=== PATIENT | male | born 1990 | race African-American/Black ===

== ENCOUNTER 2023-11-19 10:21 | Emergency (ER) | payer OTHER, MEDICAID, SELFPAY ==
[2023-11-19 10:41] VITALS: BP 118/64; PULSE 77; RESP 16; TEMP 36.6; O2SAT 98
--- NOTE | 2023-11-19 12:26 | PC.NURSE ---
pt LWBS, Ambulated out of ED.
== END 2023-11-19 12:40 | disposition left against medical advice (07) ==
LOC: ANHED 12:39
DX: R11.2 Nausea with vomiting, unspecified (principal)
CPT/HCPCS: 99199

== ENCOUNTER 2024-09-06 19:47 | Emergency (ER) | payer OTHER, MEDICAID, SELFPAY ==
[2024-09-06 19:58] VITALS: BP 123/66; PULSE 66; RESP 14; TEMP 36.7; O2SAT 100
--- NOTE | 2024-09-06 20:12 | ECG_ITS ---
Test Date: 2024-09-06 20:45:38 Measurements Intervals Edgar Rate: 67 P: 24 WA: 160 QRS: 44 QRSD: 94 T: 66 QT: 372 QTc: 394 Interpretive Statements SINUS RHYTHM INCOMPLETE RIGHT BUNDLE BRANCH BLOCK BASELINE ARTIFACT- I, II, III, AVR, AVL, AVF BORDERLINE ECG No previous ECG available for comparison Electronically Signed On 09-07-2024 06:06:11 [employer] by Rivera Sácnhez D.O.
--- NOTE | 2024-09-06 20:23 | PC.NURSE ---
patient denying all SI/HI at this time. Pt states that tonight was all a miscommunication on his ex girlfriends part. States she was saying that because of the current situation he is in, he would not specify what that situation was, that he was telling her that she was likely to take medications and she was concerned about firearms in the house so he told her to take them out. He states that he never had any intention of harming himself, he did not take any pills, and that the broadcast engineer searched him and he did not have any firearms on him or his vehicle. Denies history of any of this behavior and any attempts at harming himself in the past. Endorses taking his medications (venlafaxine and the other he could not remember) daily as prescribed. Given food per request, labs sent down to main lab, and pt given call light.
[2024-09-06 20:25] LABS: Basophils Percent Auto 0.6 % (0.2-1.2); Eosinophils Absolute Auto 0.1 K/mm3 (0-0.3); Hematocrit 44.6 % (42.0-52.0); Hemoglobin 14.8 g/dL (14.0-18.0); Immature Granulocyte Absolute 0.01 K/mm3 (0.00-0.031); Immature Granulocyte Percent A 0.1 % (0-0.5); Lymphocytes Absolute Auto 1.04 K/mm3 (0.9-3.2); Lymphocytes Percent Auto 15.5 % (18.3-44.2); Mean Corpuscular HGB Conc 33.2 g/dl (32-36); Mean Corpuscular Hemoglobin 30.8 pg (26-34); Mean Corpuscular Volume 92.9 fl (80-100); Mean Platelet Volume 10.5 fl (7.4-10.4); Monocytes Absolute Auto 0.5 K/mm3 (0.1-0.6); Monocytes Percent Auto 7.4 % (2.6-8.5); Neutrophils Absolute Auto 5.1 K/mm3 (1.3-6.7); Neutrophils Percent Auto 75.4 % (45.5-73.1); Platelet Count Result 233 k/mm3 (150-375); Red Cell Distribution Width 12.7 % (11.5-14.5); White Blood Count 6.7 K/mm3 (4.5-10.0)
[2024-09-06 20:37] LABS: Alanine Aminotransferase 35 U/L (6-50); Albumin Level 4.6 g/dL (3.5-5.1); Alkaline Phosphatase 48 U/L (38-126); Anion Gap 9 mmol/L (4-12); Aspartate Amino Transferase 27 U/L (17-59); Bilirubin,Total 2.1 mg/dL (0.2-1.3); Blood Urea Nitrogen 11 mg/dL (9-20); Calcium 9.6 mg/dL (8.4-10.2); Carbon Dioxide 28 mmol/L (22-30); Chloride 101 mmol/L (98-107); Estimated CRCL calculation 124 ml/min; Estimated Glomerular Filt Rate > 60; Glucose 99 mg/dL (65-110); Potassium 3.9 mmol/L (3.4-5.0); Sodium 138 mmol/L (137-145)
[2024-09-06 20:51] LABS: Acetaminophen < 10 ug/mL (10-30); Ethanol < 10 mg/dL (<10); Salicylate < 1.0 mg/dL (2-20)
--- NOTE | 2024-09-06 21:11 | ED.GENADULT ---
HPI - General Adult General Chief complaint: Psychiatric Symptoms Stated complaint: Crisis intervention team Time Seen by Provider: 09/06/24 19:58 History of Present Illness HPI narrative: Patient is a 34-year-old gentleman who presents emergency department with chief complaint of needs to be crisis intervened. The patient was called by the girlfriend who reported that the patient stated that he was going to harm himself the patient states that he has no thoughts of harming himself and states it was all a matter of misunderstanding. The patient states that he has no thoughts of harming himself he just wants to watch the game and he had some. Related Data Allergies Allergy/AdvReac Type Severity Reaction Status Date / Time No Known Allergies Allergy Verified 09/06/24 20:28 Review of Systems Review of Systems: A 10 system review of systems was completed on the patient and is negative except for what is stated in the HPI. Nursing and ancillary documentation was reviewed. Exam Narrative: GENERAL: Well-appearing, well-nourished, and in no acute distress. HEAD: Normocephalic, atraumatic. EYES: PERRLA and EOMI. ENT: Nares clear, no rhinorrhea or epistaxis. Mucous membranes moist. NECK: Supple. CHEST: Clear to auscultation. No respiratory distress. HEART: Regular rate and rhythm. No murmur heard. Normal peripheral pulses. ABDOMEN: Soft, nontender, nondistended, normal active bowel sounds. EXTREMITIES: Normal range of motion. No edema. SKIN: Warm, dry, no rash. NEURO: No focal deficits. Alert and oriented x3. PSYCH: Normal mood and affect. Course Vital Signs Vital signs: Vital Signs Temperature 36.7 C 09/06/24 19:58 Pulse Rate 66 09/06/24 19:58 Respiratory Rate 14 09/06/24 19:58 Blood Pressure 123/66 09/06/24 19:58 Pulse Oximetry 100 09/06/24 19:58 Temperature 36.7 C 09/06/24 19:58 Pulse Rate 66 09/06/24 19:58 Respiratory Rate 14 09/06/24 19:58 Blood Pressure 123/66 09/06/24 19:58 Pulse Oximetry 100 09/06/24 19:58 Medical Decision Making MDM Narrative Medical decision making narrative: Differential diagnosis includes is a health crisis, intoxication laboratory studies were obtained on the patient patient showed no acute abnormalities the patient is medically clear for psychiatric evaluation referral transfer and admission patient was seen by crisis and cleared for outpatient follow-up Vital Signs Vital Signs: Vital Signs Temperature 36.7 C 09/06/24 19:58 Pulse Rate 66 09/06/24 19:58 Respiratory Rate 14 09/06/24 19:58 Blood Pressure 123/66 09/06/24 19:58 Pulse Oximetry 100 09/06/24 19:58 Temperature 36.7 C 09/06/24 19:58 Pulse Rate 66 09/06/24 19:58 Respiratory Rate 14 09/06/24 19:58 Blood Pressure 123/66 09/06/24 19:58 Pulse Oximetry 100 09/06/24 19:58 Lab Data 09/06/24 20:19 09/06/24 20:19 Labs: Lab Results 09/06/24 09/06/24 09/06/24 Range/Units 20:13 20:19 20:54 WBC 6.7 (4.5-10.0) K/mm3 RBC 4.80 (4.6-6.20) M/mm3 Hgb 14.8 (14.0-18.0) g/dL Hct 44.6 (42.0-52.0) % MCV 92.9 (80-100) fl MCH 30.8 (26-34) pg MCHC 33.2 (32-36) g/dl RDW 12.7 (11.5-14.5) % Plt Count 233 (150-375) k/mm3 MPV 10.5 H (7.4-10.4) fl Immature Gran % (Auto) 0.1 (0-0.5) % Neut % (Auto) 75.4 H (45.5-73.1) % Lymph % (Auto) 15.5 L (18.3-44.2) % Cassia % (Auto) 7.4 (2.6-8.5) % Eos % (Auto) 1.0 (0-4.4) % Baso % (Auto) 0.6 (0.2-1.2) % Lymph # (Auto) 1.04 (0.9-3.2) K/mm3 Cassia # (Auto) 0.5 (0.1-0.6) K/mm3 Eos # (Auto) 0.1 (0-0.3) K/mm3 Baso # (Auto) 0.0 (0.0-0.1) K/mm3 Abs Immat Gran (auto) 0.01 (0.00-0.031) K/mm3 Absolute Neuts (auto) 5.1 (1.3-6.7) K/mm3 Absolute Nucleated RBC 0.000 (0.0-0.012) K/mm3 Nucleated RBC % 0.0 (0.0-0.2) % Sodium 138 (137-145) mmol/L Potassium 3.9 (3.4-5.0) mmol/L Chloride 101 (98-107) mmol/L Carbon Dioxide 28 (22-30) mmol/L Anion Gap 9 (4-12) mmol/L BUN 11 (9-20) mg/dL Creatinine 1.00 (0.7-1.3) mg/dL Estim Creat Clear Calc 124 ml/min Estimated GFR > 60 (59 - ) Glucose 99 (65-110) mg/dL Calcium 9.6 (8.4-10.2) mg/dL Total Bilirubin 2.1 H (0.2-1.3) mg/dL AST 27 (17-59) U/L ALT 35 (6-50) U/L Alkaline Phosphatase 48 (38-126) U/L Total Protein 8.0 (6.3-8.2) g/dL Albumin 4.6 (3.5-5.1) g/dL TSH 1.550 (0.465-4.680) uIU/mL Urine Color Dark yellow (Yellow) Urine Appearance Clear (Clear) Urine pH 5.5 (5.0-9.0) Ur Specific [place] 1.036 H (1.001-1.035) Urine Protein Trace (Negative) mg/dL Urine Glucose (UA) Negative (Negative) mg/dL Urine Ketones Trace H (Negative) mg/dL Ur Blood (Man) Negative (Negative) Urine Nitrate Negative (Negative) Urine Bilirubin Negative (Negative) Urine Urobilinogen 1.0 (<2.0) mg/dL Add Ur Microanalysis Reviewed Leukocyte Esterase Rfl Negative (Negative) SAMPSON/UL Urine RBC 0-2 (0-2) /hpf Urine WBC 0-5 (0-3) /hpf Ur Squamous Epith Cells None seen (Few) /hpf Urine Bacteria None seen /hpf Urine Casts 3-5 Urine Mucus Present /lpf Salicylates < 1.0 L (2-20) mg/dL Urine Opiates Screen Negative (Negative) Urine Methadone Screen Negative (Negative) Acetaminophen < 10 L (10-30) ug/mL Ur Barbiturates Screen Negative (Negative) Ur Phencyclidine Scrn Negative (Negative) Ur Amphetamine Screen Negative (Negative) U Benzodiazepines Scrn Negative (Negative) Urine Cocaine Screen Negative (Negative) U Cannabinoids Screen Negative (Negative) Ethyl Alcohol < 10 (<10) mg/dL Influenza A (RT-PCR) Negative (Negative) Influenza B (RT-PCR) Negative (Negative) RSV (RT-PCR) Negative (Negative) SARS-CoV-2 RNA (RT-PCR) Negative (Negative) Discharge Plan Discharge Clinical Impression: Depression Patient Disposition: Home, Self-Care Condition: Stable Instructions: Antibiotic Form, Depression (ED), Help Prevent Suicide (ED) Follow-up/Referrals: UNKNOWN,DOCTOR [Primary Care Provider] - Kehinde Escobedo MD [Physician] - Time of Disposition: 23:53
[2024-09-06 21:14] LABS: Add Urine Microscopic? YES; Appearance Urine Clear (Clear); Bacteria Urine None Seen /hpf; Bilirubin Urine Negative (Negative); Blood Urine Negative (Negative); Color Urine Dark Yellow (Yellow); Glucose Urine UA Negative (Negative); Ketones Urine Trace mg/dL (Negative); Leukocyte Esterase Ur Negative LEU/UL (Negative); Mucus Urine Present /lpf; Need Manual Microscopic Reviewed; Nitrate Urine Negative (Negative); Protein Urine Trace mg/dL (Negative); RBC Urine 0-2 /hpf (0-2); Specific Grav Ur 1.036 (1.001-1.035); Squamous Epithelial Cell Urine None Seen /hpf (Few); WBC Urine 0-5 /hpf (0-3); pH Urine 5.5 (5.0-9.0)
[2024-09-06 21:35] LABS: Influenza A QL RT-PCR Negative (Negative); Influenza B QL RT-PCR Negative (Negative); RSV RNA, RT-PCR Negative (Negative); SARS-CoV-2 RNA PCR Negative (Negative)
[2024-09-06 22:27] LABS: Amphetamine Screen Urine Negative (Negative); Barbiturate Screen Urine Negative (Negative); Benzodiazepines Screen Urine Negative (Negative); Cannabinoid Screen Urine Negative (Negative); Cocaine Screen Urine Negative (Negative); Methadone Screen Urine Negative (Negative); Opiate Screen Urine Negative (Negative); Phencyclidine Screen Urine Negative (Negative)
--- NOTE | 2024-09-06 23:18 | PC.NURSE ---
care and report given to JOEL Stearns. all questions answered.
--- NOTE | 2024-09-06 23:26 | PC.NURSE ---
Pt to be provided safety plan by crisis team.
[2024-09-07] VITALS: BP 126/78; PULSE 68; RESP 15; O2SAT 99
== END 2024-09-07 00:02 | disposition home or self-care (01) ==
PROVIDERS: Emergency Provider Emergency Medicine
DX: F32.A Depression, unspecified (principal); Z11.52 Encounter for screening for COVID-19; I45.10 Unspecified right bundle-branch block
CPT/HCPCS: 36415; 80053; 80143; 80179; 80307; 81001; 82077; 84443; 85025; 87637; 93005; 99284